=== PATIENT | male | born 1975 | race Caucasian/White ===

== ENCOUNTER 2020-09-16 17:10 | Observation (INO) ==
--- NOTE | 2020-09-16 19:20 | Emergency Department Note ---
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 He was seen there for a 3 to 4-day blurry vision in the bottom part of his right eye. The patient tells me that it started Saturday night into Saturday. Besides this he denies other complaints. He denies any difficulty speaking or swallowing or numbness or weakness. He had an episode of dizziness 2 months ago but none now. No chest pain or shortness of breath. No pain in his abdomen or back. No fever no exposure to Covid. He is not been Covid tested. He says they have been checking his temperature daily as per routine and he has had no fever. The symptoms started suddenly. No headache or head injuries. No chest pain or shortness of breath. No numbness or weakness. Initially was unclear why he was here as he did not call ahead in the halfway guards could not tell me so I did c all and talk to Dr. Doherty at [facility]. He said that the infantry indirect fire crewmember told him that he had a branch occlusion of a retinal artery and was sent for a stroke work-up. In light of this a full stroke work-up was ordered. The patient has no trouble speaking or swallowing. Home Medications Medication Instructions Recorded Confirmed Type ketoconazole 1 applic TOPICAL UD 09/16/20 09/16/20 History Allergies Allergy/AdvReac Type Severity Reaction Status Date / Time No Known Allergies Allergy Unverified 09/16/20 19:54 Past Med/Surg History Social History Smoking Status: Never smoker Feels Safe at Home: Yes Review of Systems A total of 10 systems reviewed and were otherwise negative Physical Exam Vital Signs Vital Signs - 24 hr 09/16/20 17:14 09/16/20 17:17 09/16/20 21:17 Temperature 36.5 C 36.5 C Temperature Source Oral Temporal Artery Scan Pulse Rate 99 H 99 H Pulse Rate [Apical] 71 Pulse Rhythm Regular Pulse Strength Normal Respiratory Rate 20 18 16 Respiratory Effort / Characteristics Non-Labored Spontaneous Non-Labored Spontaneous Respiratory Depth Normal Normal Respiratory Pattern Regular Blood Pressure 169/109 H 169/109 H Blood Pressure [Right Arm] 152/100 H Blood Pressure Mean 129 129 Blood Pressure Mean [Right Arm] 117 Blood Pressure Position Sitting Sitting Pulse Oximetry 100 100 100 Oxygen Delivery Method Room Air Room Air Room Air Sepsis Recent Fever Within 48 Hours No No Sepsis New/Unexplained Change in Mental Status N/A N/A Sepsis Action Taken by Nursing No Action Required No Action Required General: Well developed well nourished in no acute distress, breathing comfortably on room air. Normal speech HEENT: Normal cephalic atraumatic. Pupils are equal round and reactive to light. Extraocular movements are intact. Oropharynx is pink with moist mucous membranes. No swelling of the mouth lips or tongue. Neck: Supple with a midline trachea. No meningeal signs or stiffness, no JVD or bruits. No Stridor. Chest: Clear to auscultation bilaterally. No wheezes or rhonchi. No increased work of breathing. Heart: Regular rate and rhythm without murmurs or gallops. Abdomen: Soft nontender, nondistended without rebound guarding or rigidity. Extremities: No cyanosis clubbing or edema. No calf tenderness or assymetry Spine/Back. Non tender to palpation. No CVA tenderness Skin: Good turgor without rashes. Neurologic exam: Cranial nerves two through 12 are intact. Motor and sensation are intact and symmetrical throughout. Course Administered Medications Discontinued Medications Aspirin (Aspirin 81 Mg Chew) 324 mg PO NOW STA Stop: 09/16/20 21:35 Last Admin: 09/16/20 21:58 Dose: 324 mg Documented by: [id number] Ioversol (Optiray 320 125ml) 120 ml IV ONCE ONE Stop: 09/16/20 21:13 Last Admin: 09/16/20 21:12 Dose: 120 ml Documented by: [id number] Medical Decision Making Differential Diagnosis Stroke, retinal artery occlusion, arrhythmia, electrolyte or metabolic abnormality, intracranial hemorrhage, vascular disease, infection, Covid Medical Records Attestation: I reviewed the patient's medical records. Home Medications Current Medication List: was personally reviewed by me Laboratory Data Attestation: I reviewed the patient's lab results. Result diagrams: 09/16/20 19:31 09/16/20 19:31 Lab Results 09/16/20 09/16/20 09/16/20 Range/Units 19:31 19:31 19:31 WBC 5.73 (4.8-10.8) K/uL RBC 4.91 (4.7-6.1) M/uL Hgb 15.4 (14.0-18.0) g/dL Hct 40.8 L (42-52) % MCV 83.1 (80-100) fL MCH 31.4 (25-34) pg MCHC 37.7 H (32-36) g/dL RDW Std Deviation 37.4 (36.4-46.3) fL RDW Coeff of Patrick 12.4 (11.5-14.5) % Plt Count 207 (130-400) K/uL MPV 10.6 H (7.4-10.4) fL Immature Gran % (Auto) 0.0 % Neut % (Auto) 53.4 % Lymph % (Auto) 39.6 % [place] % (Auto) 6.5 % Eos % (Auto) 0.3 % Baso % (Auto) 0.2 % Neut # (Auto) 3.06 (1.4-6.5) K/uL Lymph # (Auto) 2.27 (1.2-3.4) K/uL [place] # (Auto) 0.37 (0.11-0.59) K/uL Eos # (Auto) 0.02 (0-0.5) K/uL Baso # (Auto) 0.01 (0-0.2) K/uL Immature Gran # (Auto) 0.00 (0.00-0.02) K/uL PT 11.5 (9.0-12.0) Seconds INR 1.1 (0.9-1.1) APTT 30.1 (21.0-31.0) Seconds PTT Ratio 1.1 Sodium 140 (136-145) mmol/L Potassium 3.7 (3.5-5.1) mmol/L Chloride 108 H (98-107) mmol/L Carbon Dioxide 26 (21-32) mmol/L Anion Gap 5.0 (3-11) BUN 11 (7-18) mg/dl Creatinine 0.93 (0.6-1.4) mg/dl Est Cr Clr Drug Dosing Not Reportable Est GFR ( Amer) 112.9 Est GFR (Non-Af Amer) 97.4 BUN/Creatinine Ratio 11.3 (10-20) Glucose 102 H (70-99) mg/dl Calcium 9.2 (8.5-10.1) mg/dl Magnesium 2.2 (1.8-2.4) mg/dl Total Bilirubin 0.5 (0.2-1) mg/dl AST 19 (15-37) U/L ALT 39 (12-78) U/L Alkaline Phosphatase 54 (45-117) U/L Troponin I < 0.015 (0-0.045) ng/ml Total Protein 8.2 (6.4-8.2) gm/dl Albumin 4.1 (3.4-5.0) gm/dl Globulin 4.1 H (2.5-4.0) gm/dl Albumin/Globulin Ratio 1.0 (0.9-2) COVID-19 Eval Order SARS-CoV-2, RNA, NAAT (NEGATIVE) 09/16/20 09/16/20 Range/Units 19:55 19:55 WBC (4.8-10.8) K/uL RBC (4.7-6.1) M/uL Hgb (14.0-18.0) g/dL Hct (42-52) % MCV (80-100) fL MCH (25-34) pg MCHC (32-36) g/dL RDW Std Deviation (36.4-46.3) fL RDW Coeff of Patrick (11.5-14.5) % Plt Count (130-400) K/uL MPV (7.4-10.4) fL Immature Gran % (Auto) % Neut % (Auto) % Lymph % (Auto) % [place]raz[place] % (Auto) % Eos % (Auto) % Baso % (Auto) % Neut # (Auto) (1.4-6.5) K/uL Lymph # (Auto) (1.2-3.4) K/uL [place] # (Auto) (0.11-0.59) K/uL Eos # (Auto) (0-0.5) K/uL Baso # (Auto) (0-0.2) K/uL Immature Gran # (Auto) (0.00-0.02) K/uL PT (9.0-12.0) Seconds INR (0.9-1.1) APTT (21.0-31.0) Seconds PTT Ratio Sodium (136-145) mmol/L Potassium (3.5-5.1) mmol/L Chloride (98-107) mmol/L Carbon Dioxide (21-32) mmol/L Anion Gap (3-11) BUN (7-18) mg/dl Creatinine (0.6-1.4) mg/dl Est Cr Clr Drug Dosing Est GFR ( Amer) Est GFR (Non-Af Amer) BUN/Creatinine Ratio (10-20) Glucose (70-99) mg/dl Calcium (8.5-10.1) mg/dl Magnesium (1.8-2.4) mg/dl Total Bilirubin (0.2-1) mg/dl AST (15-37) U/L ALT (12-78) U/L Alkaline Phosphatase (45-117) U/L Troponin I (0-0.045) ng/ml Total Protein (6.4-8.2) gm/dl Albumin (3.4-5.0) gm/dl Globulin (2.5-4.0) gm/dl Albumin/Globulin Ratio (0.9-2) COVID-19 Eval Order Covid19 [facility] SARS-CoV-2, RNA, NAAT NEGATIVE (NEGATIVE) Imaging Data Radiologist's Impression: SINGLE VIEW CHEST CLINICAL HISTORY: Strokelike symptoms. FINDINGS: An AP, portable, upright chest radiograph is obtained. No prior studies are available for comparison at the time of dictation. The heart appears mildly enlarged. The pulmonary vasculature is noncongested. There is bibasilar scarring/atelectasis. No airspace consolidation or large pleural effusion is identified. No pneumothorax is seen. The bony thorax is grossly intact. IMPRESSION: No acute cardiopulmonary abnormality. UNENHANCED CT OF THE BRAIN CT ANGIOGRAM OF THE BRAIN; CT ANGIOGRAM OF THE NECK CLINICAL HISTORY: Strokelike symptoms. COMPARISON STUDY: No priors. TECHNIQUE: Unenhanced axial CT scan of the brain is performed. Subsequently, following the IV administration of 120 of Optiray 320, CT angiogram of the head and neck was performed from the aortic arch to the vertex. Images are reviewed in the axial, sagittal, and coronal planes. 3-D MIPS images are created and assessed. IV contrast was administered without complication. All measurements were calculated based on NASCET criteria. A dose lowering technique was utilized adhering to the principles of ALARA. CT DOSE: 1464.12 mGy.cm FINDINGS: Brain parenchyma: The brain parenchyma is normal in appearance. There is no hemorrhage, mass effect, or evidence of acute territorial ischemia by CT criteria. There is no evidence of enhancing mass lesion on the angiogram phase images. The ventricles, sulci, and cisterns are normal in configuration. Ruffin- white matter differentiation is preserved. No extra-axial fluid collection is seen. Thoracic aorta: Visualized portions of the thoracic aorta are normal in caliber. The aortic arch demonstrates standard 3-vessel anatomy. Right carotid arterial system: The right common carotid artery is widely patent, as are the right internal and external carotid arteries. Left carotid arterial system: The left common carotid artery is widely patent, as are the left internal and external carotid arteries. Vertebral arteries: The vertebral arteries are widely patent bilaterally and codominant. Subclavian arteries: Widely patent bilaterally. Intracranial vasculature: The internal carotid arteries are patent at the skull base, as are the anterior and middle cerebral arteries bilaterally. The vertebrobasilar system and posterior cerebral arteries are widely patent. The vertebral arteries are codominant. There is no aneurysm, high-grade stenosis, or focal vessel cut off seen throughout the intracranial circulation. Jugular veins: Patent bilaterally. Dural sinuses: Patent. Lung apices: Partially visualized upper lobe lung parenchyma appears clear. There is indeterminant gas identified within the mediastinum anterior to the trachea. This is partially visualized on image #[address] angiogram series. Soft tissues: The visualized pharyngeal soft tissues are normal in appearance noting angiographic phase technique. The oropharyngeal airway appears widely patent. The salivary and thyroid glands are normal in appearance. No cervical lymphadenopathy is seen. Skeletal structures: The calvarium appears intact. The cervical spine is within normal limits. Orbits: The bony orbits are intact. Orbital contents are normal as visualized. Sinuses and mastoids: The paranasal sinuses are clear. The mastoid air cells are well pneumatized. IMPRESSION: 1. There is no hemorrhage, mass effect, or evidence of acute territorial ischemia by CT criteria. 2. Unremarkable CT angiogram of the brain. 3. Unremarkable CT angiogram of the neck. 4. There is indeterminant mediastinal gas seen immediately anterior to the trachea which is partially visualized on the CT angiogram of the neck. This may represent a tracheal diverticulum or possibly pneumomediastinum. Clinical correlation will be required. ECG Data Attestation: I personally reviewed and interpreted this ECG as follows: Indication: + weakness (Strokelike symptoms with branch retinal artery occlusion) Rate (beats per minute): 61 Rhythm: + normal sinus ECG Intervals/blocks: + Normal QRS, + Normal QT and + Normal CT ECG [place]: + Normal ECG ST segments: + Normal ST segments ECG Findings: no PACs and no PVCs Comparison ECG Date: no prior available MDM Narrative This patient comes in as described above. 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 He said 3 or 4 days of loss of vision. Apparently they thought that he had a branch retinal artery occlusion on ophthal mologic exam. This is concerning for a stroke. He needs a full stroke work-up and this was initiated. I did use language line lunchroom mother to talk to the patient as well. He is outside the window for TPA or intervention but he does need a full stroke work-up. IV access was established, EKG, and chest x-ray were obtained. CAT scan of the head and neck were also obtained. EKG does not suggest any significant arrhythmia or ischemia. Troponin is not elevated. He has no significant electrolyte or metabolic abnormalities. He has nothing to suggest infection or hypoglycemia. His Covid testing was negative. CAT/CTA scan were unremarkable. Electrolytes were unremarkable. There was a small amount of air seen near the trachea which could be a tracheal diverticulum or pneumomediastnum, chest x-ray was obtained and was negative. The patient was given aspirin 324 mg chewable. I do think he needs to be admitted/observe for further stroke work-up. I have consulted Dr. Pacheco to see the patient in the ER for these measures. Continuous cardiac monitoring: An order was placed in the EMR for continuous cardiac monitoring. The patient was noted to be in normal sinus rhythm with a rate of 60. Impression & Plan Acute CVA (cerebrovascular accident), Branch retinal artery occlusion of right eye Discharge Plan Visit Data Chief Complaint: Eye Pain Stated Complaint: RIGHT INFERIOR RETINAL DETACHMENT ED Provider: Timo Mendoza Discharge Problem: Acute CVA (cerebrovascular accident), Branch retinal artery occlusion of right eye Patient Disposition: Admitted As Inpatient Discharge Instructions Interventions: ED Discharge Assessment Last Done: 09/16/20 23:03
[2020-09-16 19:58] LABS: Basophils # (auto) 0.01 K/uL (0-0.2); Basophils % (auto) 0.2 %; Eosinophils # (auto) 0.02 K/uL (0-0.5); Eosinophils % (auto) 0.3 %; Hematocrit (blood only) 40.8 % (42-52); Hemoglobin 15.4 g/dL (14.0-18.0); Lymphocytes # (auto) 2.27 K/uL (1.2-3.4); Lymphocytes % (auto) 39.6 %; Mean Corpuscular Hemoglobin 31.4 pg (25-34); Mean Corpuscular Hgb Conc 37.7 g/dL (32-36); Mean Corpuscular Volume 83.1 fL (80-100); Mean Platelet Volume 10.6 fL (7.4-10.4); Monocytes # (auto) 0.37 K/uL (0.11-0.59); Monocytes % (auto) 6.5 %; Neutrophils # (auto) 3.06 K/uL (1.4-6.5); Neutrophils % (auto) 53.4 %; Platelet Count 207 K/uL (130-400); RDW Coefficient of Variation 12.4 % (11.5-14.5); RDW Standard Deviation 37.4 fL (36.4-46.3); Red Blood Count 4.91 M/uL (4.7-6.1); White Blood Count 5.73 K/uL (4.8-10.8)
[2020-09-16 20:12] LABS: INR 1.1 (0.9-1.1); Partial Thromboplastin Ratio 1.1; Partial Thromboplastin Time 30.1 Seconds (21.0-31.0); Prothrombin Time 11.5 Seconds (9.0-12.0)
[2020-09-16 20:20] LABS: Alanine Aminotransferase 39 U/L (12-78); Albumin Level 4.1 gm/dl (3.4-5.0); Aspartate Aminotransferase 19 U/L (15-37); BUN Creatinine Ratio 11.3 (10-20); Blood Urea Nitrogen 11 mg/dl (7-18); Calcium 9.2 mg/dl (8.5-10.1); Carbon Dioxide 26 mmol/L (21-32); Chloride 108 mmol/L (98-107); Est GFR (African American) 112.9; Est GFR (Non-African American) 97.4; Glucose 102 mg/dl (70-99); Magnesium 2.2 mg/dl (1.8-2.4); Potassium 3.7 mmol/L (3.5-5.1); Sodium 140 mmol/L (136-145)
[2020-09-16 20:24] LABS: Alkaline Phosphatase 54 U/L (45-117); Bilirubin,Total 0.5 mg/dl (0.2-1); Globulin 4.1 gm/dl (2.5-4.0); Total Protein 8.2 gm/dl (6.4-8.2); Troponin I < 0.015 ng/ml (0-0.045)
[2020-09-16] MEDS ORDERED: OPTIRAY 320 125ml IV ONE (21:12)
--- NOTE | 2020-09-16 21:28 | CT Scan Report ---
UNENHANCED CT OF THE BRAIN CT ANGIOGRAM OF THE BRAIN; CT ANGIOGRAM OF THE NECK CLINICAL HISTORY: Strokelike symptoms. COMPARISON STUDY: No priors. TECHNIQUE: Unenhanced axial CT scan of the brain is performed. Subsequently, following the IV adminis tration of 120 of Optiray 320, CT angiogram of the head and neck was performed from the aortic arch t o the vertex. Images are reviewed in the axial, sagittal, and coronal planes. 3-D MIPS images are cre ated and assessed. IV contrast was administered without complication. All measurements were calculate d based on NASCET criteria. A dose lowering technique was utilized adhering to the principles of ALA RA. CT DOSE: 1464.12 mGy.cm FINDINGS: Brain parenchyma: The brain parenchyma is normal in appearance. There is no hemorrhage, mass effect, or evidence of acute territorial ischemia by CT criteria. There is no evidence of enhancing mass lesi on on the angiogram phase images. The ventricles, sulci, and cisterns are normal in configuration. Gr ay-white matter differentiation is preserved. No extra-axial fluid collection is seen. Thoracic aorta: Visualized portions of the thoracic aorta are normal in caliber. The aortic arch demo nstrates standard 3-vessel anatomy. Right carotid arterial system: The right common carotid artery is widely patent, as are the right int ernal and external carotid arteries. Left carotid arterial system: The left common carotid artery is widely patent, as are the left director internal communications al and external carotid arteries. Vertebral arteries: The vertebral arteries are widely patent bilaterally and codominant. Subclavian arteries: Widely patent bilaterally. Intracranial vasculature: The internal carotid arteries are patent at the skull base, as are the ante rior and middle cerebral arteries bilaterally. The vertebrobasilar system and posterior cerebral enzo misha are widely patent. The vertebral arteries are codominant. There is no aneurysm, high-grade steno sis, or focal vessel cut off seen throughout the intracranial circulation. Jugular veins: Patent bilaterally. Dural sinuses: Patent. Lung apices: Partially visualized upper lobe lung parenchyma appears clear. There is indeterminant ga s identified within the mediastinum anterior to the trachea. This is partially visualized on image #[address] angiogram series. Soft tissues: The visualized pharyngeal soft tissues are normal in appearance noting angiographic pha se technique. The oropharyngeal airway appears widely patent. The salivary and thyroid glands are nor mal in appearance. No cervical lymphadenopathy is seen. Skeletal structures: The calvarium appears intact. The cervical spine is within normal limits. Orbits: The bony orbits are intact. Orbital contents are normal as visualized. Sinuses and mastoids: The paranasal sinuses are clear. The mastoid air cells are well pneumatized. IMPRESSION: 1. There is no hemorrhage, mass effect, or evidence of acute territorial ischemia by CT criteria. 2. Unremarkable CT angiogram of the brain. 3. Unremarkable CT angiogram of the neck. 4. There is indeterminant mediastinal gas seen immediately anterior to the trachea which is partially visualized on the CT angiogram of the neck. This may represent a tracheal diverticulum or possibly p neumomediastinum. Clinical correlation will be required. ACT 112: Negative or not required by law. Electronically signed by: Guerrero Mcleod M.D. 09/16/2020 9:27 PM
[2020-09-16] MEDS ORDERED: ASPIRIN 81 MG CHEW PO STA (21:34)
--- NOTE | 2020-09-16 21:49 | XRay Report ---
SINGLE VIEW CHEST CLINICAL HISTORY: Strokelike symptoms. FINDINGS: An AP, portable, upright chest radiograph is obtained. No prior studies are available for c omparison at the time of dictation. The heart appears mildly enlarged. The pulmonary vasculature is noncongested. There is bibasilar scarring/atelectasis. No airspace consolidation or large pleural eff usion is identified. No pneumothorax is seen. The bony thorax is grossly intact. IMPRESSION: No acute cardiopulmonary abnormality. ACT 112: Negative or not required by law. Electronically signed by: Guerrero Mcleod M.D. 09/16/2020 9:47 PM
--- NOTE | 2020-09-16 22:48 | History & Physical Report ---
Date of Service September 16, 2020 Assessment & Plan (1) Branch retinal artery occlusion of right eye: Admission and Anticipated Discharge Date Admission Date: Wilberto is a 45-year-old male who is an inmate at [facility] and was sent to [facility] from opthalmologist office in [place]. His chief complaint is 3 to 4 days of vision changes in the bottom part of his right eye. His mva reactor operator was said to have found a branch occlusion of the retinal artery he was sent to [facility] for a stroke work-up. He requires admission for further evaluation and management. Branch retinal artery occlusion of right eye Per [facility] provider, mva reactor operator mentioned occlusion of branch retinal artery of right eye Sent to [facility] by mva reactor operator for stroke work-up So far patient with negative work-up for stroke including head CT, chest x-ray, EKG, head and neck CTA, EKG No neurologic deficits on exam No symptoms per patient except blurry vision at bottom of right eye Consult Neurology Order brain MRI without contrast to further rule out stroke Morning CBC, BMP, A1c, lipid profile, coags Admit to med/surg telemetry FEN GI: Heart healthy diet DVT prophylaxis: Lovenox 40 mg SQ daily Dispo: Med/surg telemetry CODE STATUS: Full History of Present Illness Chief Complaint: Eye complaint Primary Care Provider: STEPHANIE Thorpewendy Wilberto Dodson is a 45-year-old male who is an inmate at [facility] and was sent to [facility] from opthalmologist office in [place]. His chief complaint is 3 to 4 days of vision changes in the bottom part of his right eye. ED provider talk to Dr. Doherty at [facility] who said that the mva reactor operator had mentioned the patient had a branch occlusion of the retinal artery and was sent to the hospital for stroke work-up. He describes cloudy vision at the bottom part of his right eye. He has no pain, no weakness, no dizziness, no numbness, difficulty speaking/swallowing. Patient mentions he used to take medications for high blood pressure but was taken off of them a while back as he had well-controlled BPs. Denies fever, chills, chest pain, cough, shortness of breath, abd pain, n/v, diarrhea, constipation, dysuria. In the ED he had unremarkable CBC & BMP. He had a head CT that was negative for acute intracranial abnormalities. Head & neck CTA unremarkable but did note indeterminant mediastinal gas seen immediately anterior to the trachea which is partially visualized on the CT angiogram of the neck. This may represent a tracheal diverticulum or possibly pneumomediastinum. Follow-up CXR however showed no acute cardiopulmonary findings, no pneumothorax seen. He received 1 dose of ASA 324mg PO. Patient interview was done in [place]i by myself, a white earth Bahraini speaker. Allergies Allergy/AdvReac Type Severity Reaction Status Date / Time No Known Allergies Allergy Unverified 09/16/20 19:54 Home Medications Medication Instructions Recorded Confirmed Type ketoconazole 1 applic TOPICAL UD 09/16/20 09/16/20 History Past Med/Surg History Social History Smoking Status: Never smoker Second Hand Exposure: No; Do You Dip or Chew Tobacco: No; Tobacco Cessation Education Requested by Patient: No Hx Alcohol Use: No Hx Substance Use: No Preferred Language: [place]i Communication Ability: Effective Communication Tools: IPad Head Of Ict Required: Yes Beliefs That Will Affect Care: None Current Living Situation: Other Current Living Situation Comment: [facility] Other Information That Helps Us Care for You: No Feels Safe at Home: Yes Safety Concerns: Feels Safe At This Time Assistive Devices: None Assistive Devices Comment: GLASSES NOT SENT WITH PATIENT FROM CORRECTIONAL FACILITY Review of Systems Review of Systems: All systems reviewed & are unremarkable except as noted in HPI & below Physical Exam Physical Exam: GENERAL: A&Ox3. NAD. HEENT: PERRL, EOMI. NECK: No JVD. No lymphadenopathy. CHEST/LUNGS: CTAB A/P. No crackles, wheezes, rales, ronchi. No crepitus under skin. HEART: RRR. No m/g/r. No carotid bruits. ABDOMEN: NT/ND, soft. BS+ x4 EXTREMITIES: No cyanosis, no clubbing, no edema SKIN: Warm and dry. No rashes or lesions. PSYCHIATRIC: Euthymic affect, no SI, no pressured speech, no hallucinations NEUROLOGIC: The patient has 5/5 strength x4 extremities. Sensation intact. CN II-XII grossly intact. Results & Data Results & Data ([facility]) Vital Signs (Past 12 Hours) Vital Signs Temp Pulse Pulse Resp BP BP Pulse Ox 09/16/20 21:17 71 16 152/100 H 100 09/16/20 17:17 36.5 C 99 H 18 169/109 H 100 09/16/20 17:14 36.5 C 99 H 20 169/109 H 100 Supervising Physician Co-Signing Physician Notes Attending addendum: I have physically seen this patient, have supervised the medical residents activities, and agree with the H&P unless as otherwise noted. Assessment and Plan: Branch retinal artery occlusion in the right eye- Noted at outpatient retina specialist visit in [place] earlier in the day. CT head without contrast negative CTA head neck negative chest x-ray negative Stroke without TPA order set Order MRI brain without contrast Consults to PT/OT/speech therapy Consult neurology Aspirin 81 mg every morning Continued ophthalmologic follow-up Remainder of orders and notations as noted Resident Activity Tracking Resident Involvement: Resident Care Provided Care Provided: Adult Hospital Medicine
[2020-09-16] MEDS ORDERED: POLYETHYLENE (MIRALAX) 17 GM PACK PO PRN (23:43)
[2020-09-16] MEDS ORDERED: PHARMACIST DISCHARGE MED REC CONSULT PRN (23:43)
[2020-09-16] MEDS ORDERED: ACETAMINOPHEN 325 MG TAB PO PRN (23:43)
[2020-09-16] MEDS ORDERED: ONDANSETRON INJ 2 MG/ML 2 ML VIAL IV PRN (23:43)
[2020-09-16] MEDS ORDERED: MAGNESIUM HYDROXIDE SUSP 30 ML UDC PO PRN (23:43)
[2020-09-16] MEDS ORDERED: ALUMINUM/MAGNESIUM SUSP 30 ML UDC PO PRN (23:43)
[2020-09-17 06:39] LABS: Hematocrit (blood only) 40.9 % (42-52); Hemoglobin 15.1 g/dL (14.0-18.0); Mean Corpuscular Hgb Conc 36.9 g/dL (32-36); Mean Platelet Volume 10.3 fL (7.4-10.4); Platelet Count 200 K/uL (130-400); RDW Coefficient of Variation 12.5 % (11.5-14.5); RDW Standard Deviation 38.2 fL (36.4-46.3); Red Blood Count 4.87 M/uL (4.7-6.1); White Blood Count 5.29 K/uL (4.8-10.8)
[2020-09-17 06:52] LABS: INR 1.1 (0.9-1.1); Prothrombin Time 11.9 Seconds (9.0-12.0)
[2020-09-17 07:07] LABS: Basophils # (auto) 0.01 K/uL (0-0.2); Basophils % (auto) 0.2 %; Eosinophils # (auto) 0.12 K/uL (0-0.5); Eosinophils % (auto) 2.3 %; Immature Granulocytes # (auto) 0.01 K/uL (0.00-0.02); Immature Granulocytes % (auto) 0.2 %; Lymphocytes # (auto) 2.72 K/uL (1.2-3.4); Lymphocytes % (auto) 51.4 %; Monocytes # (auto) 0.65 K/uL (0.11-0.59); Monocytes % (auto) 12.3 %; Neutrophils # (auto) 1.78 K/uL (1.4-6.5); Neutrophils % (auto) 33.6 %; RBC Morphology Unremarkable
[2020-09-17 07:24] LABS: BUN Creatinine Ratio 11.4 (10-20); Calcium 8.8 mg/dl (8.5-10.1); Creatinine Clr Calc Pharmacy 125.3 ml/min; Est GFR (African American) 119.1; Est GFR (Non-African American) 102.8; Potassium 4.1 mmol/L (3.5-5.1)
--- NOTE | 2020-09-17 07:32 | Hospitalist Progress Note ---
Date of Service September 17, 2020 Assessment & Plan (1) Branch retinal artery occlusion of right eye: Patient with no changes in symptoms Pending MRI TTE ordered Normal A1c, glucose, blood pressure readings normal Negative head and neck CTA Continue aspirin Started Atorvastatin 80 mg Plan on follow-up of pending results and further disposition. Neurology following Admission and Anticipated Discharge Date Admission Date: September 16, 2020 Subjective No new complaints overnight Visual changes have not improved or worsened No fevers or chills, headaches No weakness numbness Tolerating normal appetite with no concerns of pain Review of Systems Review of Systems: All systems reviewed & are unremarkable except as noted in Subjective Physical Exam Physical Exam: Constitutional: WD/WN, vitals as above Respiratory: Effort normal, CTA B/L CV: RRR, no murmur, no edema Abdomen: normal bowel sounds, soft, nontender, no hepatosplenomegaly Neurologic: Grossly intact, see complete physical exam and Neurology Results & Data Results & Data ([facility]) Vital Signs (Past 12 Hours) Vital Signs Temp Pulse Resp BP BP Pulse Ox 09/17/20 03:32 36.8 C 56 L 18 129/78 97 09/16/20 23:30 37.1 C 58 L 18 159/94 H 100 09/16/20 22:50 59 L 18 131/91 96 09/16/20 21:17 71 16 152/100 H 100 Laboratory Results Laboratory Results - last 24 hr 09/16/20 09/16/20 09/16/20 19:31 19:31 19:31 WBC 5.73 RBC 4.91 Hgb 15.4 Hct 40.8 L MCV 83.1 MCH 31.4 MCHC 37.7 H RDW Std Deviation 37.4 RDW Coeff of Patrick 12.4 Plt Count 207 MPV 10.6 H Immature Gran % (Auto) 0.0 Neut % (Auto) 53.4 Lymph % (Auto) 39.6 Jay % (Auto) 6.5 Eos % (Auto) 0.3 Baso % (Auto) 0.2 Neut # (Auto) 3.06 Lymph # (Auto) 2.27 Jay # (Auto) 0.37 Eos # (Auto) 0.02 Baso # (Auto) 0.01 Immature Gran # (Auto) 0.00 RBC Morphology PT 11.5 INR 1.1 APTT 30.1 PTT Ratio 1.1 Sodium 140 Potassium 3.7 Chloride 108 H Carbon Dioxide 26 Anion Gap 5.0 BUN 11 Creatinine 0.93 Est Cr Clr Drug Dosing Not Reportable Est GFR ( Amer) 112.9 Est GFR (Non-Af Amer) 97.4 BUN/Creatinine Ratio 11.3 Glucose 102 H Estimat Average Glucose Hemoglobin A1c Calcium 9.2 Magnesium 2.2 Total Bilirubin 0.5 AST 19 ALT 39 Alkaline Phosphatase 54 Troponin I < 0.015 Total Protein 8.2 Albumin 4.1 Globulin 4.1 H Albumin/Globulin Ratio 1.0 Triglycerides Cholesterol LDL Cholesterol, Calc VLDL Cholesterol, Calc HDL Cholesterol Cholesterol/HDL Ratio Nasal Screen MRSA (PCR) COVID-19 Eval Order SARS-CoV-2, RNA, NAAT 09/16/20 09/16/20 09/17/20 19:55 19:55 00:45 WBC RBC Hgb Hct MCV MCH MCHC RDW Std Deviation RDW Coeff of Patrick Plt Count MPV Immature Gran % (Auto) Neut % (Auto) Lymph % (Auto) Jay % (Auto) Eos % (Auto) Baso % (Auto) Neut # (Auto) Lymph # (Auto) Jay # (Auto) Eos # (Auto) Baso # (Auto) Immature Gran # (Auto) RBC Morphology PT INR APTT PTT Ratio Sodium Potassium Chloride Carbon Dioxide Anion Gap BUN Creatinine Est Cr Clr Drug Dosing Est GFR ( Amer) Est GFR (Non-Af Amer) BUN/Creatinine Ratio Glucose Estimat Average Glucose Hemoglobin A1c Calcium Magnesium Total Bilirubin AST ALT Alkaline Phosphatase Troponin I Total Protein Albumin Globulin Albumin/Globulin Ratio Triglycerides Cholesterol LDL Cholesterol, Calc VLDL Cholesterol, Calc HDL Cholesterol Cholesterol/HDL Ratio Nasal Screen MRSA (PCR) Negative COVID-19 Eval Order Covid19 IDNow [facility] SARS-CoV-2, RNA, NAAT NEGATIVE 09/17/20 09/17/20 09/17/20 06:26 06:26 06:26 WBC 5.29 RBC 4.87 Hgb 15.1 Hct 40.9 L MCV 84.0 MCH 31.0 MCHC 36.9 H RDW Std Deviation 38.2 RDW Coeff of Patrick 12.5 Plt Count 200 MPV 10.3 Immature Gran % (Auto) 0.2 Neut % (Auto) 33.6 Lymph % (Auto) 51.4 Jay % (Auto) 12.3 Eos % (Auto) 2.3 Baso % (Auto) 0.2 Neut # (Auto) 1.78 Lymph # (Auto) 2.72 Jay # (Auto) 0.65 H Eos # (Auto) 0.12 Baso # (Auto) 0.01 Immature Gran # (Auto) 0.01 RBC Morphology Unremarkable PT 11.9 INR 1.1 APTT PTT Ratio Sodium 142 Potassium 4.1 Chloride 110 H Carbon Dioxide 29 Anion Gap 3.0 BUN 10 Creatinine 0.87 Est Cr Clr Drug Dosing 125.3 Est GFR ( Amer) 119.1 Est GFR (Non-Af Amer) 102.8 BUN/Creatinine Ratio 11.4 Glucose 95 Estimat Average Glucose Hemoglobin A1c Calcium 8.8 Magnesium Total Bilirubin AST ALT Alkaline Phosphatase Troponin I Total Protein Albumin Globulin Albumin/Globulin Ratio Triglycerides 108 Cholesterol 200 LDL Cholesterol, Calc 139 VLDL Cholesterol, Calc 22 HDL Cholesterol 39 Cholesterol/HDL Ratio 5 Nasal Screen MRSA (PCR) COVID-19 Eval Order SARS-CoV-2, RNA, NAAT 09/17/20 06:26 WBC RBC Hgb Hct MCV MCH MCHC RDW Std Deviation RDW Coeff of Patrick Plt Count MPV Immature Gran % (Auto) Neut % (Auto) Lymph % (Auto) Jay % (Auto) Eos % (Auto) Baso % (Auto) Neut # (Auto) Lymph # (Auto) Jay # (Auto) Eos # (Auto) Baso # (Auto) Immature Gran # (Auto) RBC Morphology PT INR APTT PTT Ratio Sodium Potassium Chloride Carbon Dioxide Anion Gap BUN Creatinine Est Cr Clr Drug Dosing Est GFR ( Amer) Est GFR (Non-Af Amer) BUN/Creatinine Ratio Glucose Estimat Average Glucose Pending Hemoglobin A1c Pending Calcium Magnesium Total Bilirubin AST ALT Alkaline Phosphatase Troponin I Total Protein Albumin Globulin Albumin/Globulin Ratio Triglycerides Cholesterol LDL Cholesterol, Calc VLDL Cholesterol, Calc HDL Cholesterol Cholesterol/HDL Ratio Nasal Screen MRSA (PCR) COVID-19 Eval Order SARS-CoV-2, RNA, NAAT Medications Administered Current Inpatient Medications Acetaminophen (Acetaminophen 325 Mg Tab) 650 mg PO Q4H PRN PRN Reason: Pain or Fever Stop: 10/16/20 23:42 Al Hydrox/Mg Hydrox/Simethicone (Aluminum/Magnesium Susp 30 Ml Udc) 15 ml PO Q4H PRN PRN Reason: Dyspepsia Stop: 10/16/20 23:42 Enoxaparin Sodium (Enoxaparin Inj 40 Mg/0.4 Ml Syr) 40 mg SQ QAM DESTINI Stop: 10/17/20 08:59 Magnesium Hydroxide (Magnesium Hydroxide Susp 30 Ml Udc) 30 ml PO Q12H PRN PRN Reason: Constipation Stop: 10/16/20 23:42 Miscellaneous Information (Pharmacist Discharge Med Rec Consult) 1 ea N/A UD PRN PRN Reason: Consult Stop: 10/16/20 23:42 Ondansetron HCl (Ondansetron Inj 2 Mg/Ml 2 Ml Vial) 4 mg IV Q6H PRN PRN Reason: Nausea Stop: 10/16/20 23:42 Polyethylene Glycol (Polyethylene (Miralax) 17 Gm Pack) 17 gm PO DAILY PRN PRN Reason: Constipation Stop: 10/16/20 23:42 PG Care Time/CCT Total # of Minutes Spent Total Time Spent with Patient: Total time spent is greater than 50% in coordination of care (as documented) at patient's floor/unit and/or counseling patient: Coding Level of Care Code 32720 Subseq Hosp Care Lvl 2 Diagnoses Branch retinal artery occlusion of right eye H34.231
[2020-09-17 07:46] LABS: Estimated Average Glucose 103 mg/dl; Hemoglobin A1C 5.2 % (4.5-5.6)
--- NOTE | 2020-09-17 07:48 | Electrocardiogram Report ---
Test Reason : Blood Pressure : / mmHG Vent. Rate : 061 BPM Atrial Rate : 061 BPM P-R Int : 148 ms QRS Dur : 102 ms QT Int : 412 ms P-R-T Axes : 043 -27 018 degrees QTc Int : 414 ms Normal sinus rhythm Normal ECG No previous ECGs available Confirmed by Vadim Coburn ([id number]) on 09/17/2020 7:47:59 AM Referred By: [facility] Confirmed By:Vadim Coburn
[2020-09-17] MEDS: ENOXAPARIN INJ 40 MG/0.4 ML SYR SQ SCH (09:20)
--- NOTE | 2020-09-17 10:51 | Neurology Consultation ---
Date of Consultation September 17, 2020 Assessment & Plan (1) Branch retinal artery occlusion of right eye: Wilberto Dodson is a 45 yo man w/ PMH of HTN who p/t [facility] after acute onset of right eye inferior field cut, found to have right BRAO by outside ophtho. Symptom localization: right ophthalmic artery Stroke mechanism: cardioembolic, less likely vessel to vessel embolus given no carotid abnormality noted Stroke WorkUp: - CT head: shows no hemorrhage or hypodensity - CTA head/neck: shows no LVO, high-grade stenosis or aneurysm - MRI brain: pending - TTE: pending - Telemetry: pending - A1c: 5.2 - FLP: 139 - Troponin: negative - Hypercoagulable labs: ordered for the AM (Cardiolipin Ab, Protein C and S, ATIII, FV Leiden, PT gene mutation, APC resistance), ESR/CRP to r/o inflammatory AION (ordered) Stroke Management: - Acute treatment: ASA - Continuous cardiac monitoring, will need 30 day event monitor on discharge if telemetry here unrevealing - Vitals, Neurochecks, NIHSS per unit routine - BP parameters: SBP CAP 180, start BP meds if indicated - Obtain MRI brain to evaluate stroke burden - Complete ischemic stroke workup with TTE without bubble, hypercoagulability panel, ESR/CRP - Consult speech, PT, OT for supportive management - Will awake overnight counselor concerning stroke education, smoking cessation, healthy diet, physical activity, weight loss - Follow up with PCP for assistance with outpatient goals (BP <130/80, LDL <70, A1c <7) - Follow up in neurology clinic in 6-8 weeks Secondary Stroke Prevention: - Antiplatelet: ASA 81mg po daily - Anticoagulation: Not indicated at this time - Statin: Atorvastatin 80mg daily HTN: - BP parameters, as above - Restart home medications with goal of lowering BP to normotension over next 3- 4 days (consider starting low dose lisinopril as an outpatient if BP still elevated). - EKG and troponin pending FEN/GI: - Diet: Cardiac HH diet and PO meds given absence of bulbar signs or symptoms - Monitor lytes and replete PRN Glucose Control: - Sliding scale insulin and accuchecks per primary team to avoid hyperglycemia Thank you for this interesting consult. Plan of care was discussed with primary team. Please call with any questions. History of Present Illness Attending Physician: Timo Quinn DO History of Present Illness Wilberto Dodson is a 45 yo man w/ PMH of HTN who p/t [facility] after acute onset of right eye inferior field cut, found to have right BRAO by outside ophtho. 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 In the ED, he was afebrile, BP 169/109, heart rate 99, respiratory rate 20 satting 100% room air. Labs showed WBC 5.73, hemoglobin 15.4, platelets 207, BMP unremarkable with creatinine 0.93, glucose 102, INR 1.1, calcium/magnesium within normal, LFTs within normal troponin negative, Covid negative. Imaging independently reviewed. CT head shows no hemorrhage or hypodensity. CTA head and neck shows no LVO, high-grade stenosis or aneurysm. MRI brain pending. On examination, he reports that he is unable to see in the right eye inferior, outer quadrant. This has been present for 4-5 days. Denies any headaches, numbness/tingling, weakness or other symptoms associated with this. Allergies Allergy/AdvReac Type Severity Reaction Status Date / Time No Known Allergies Allergy Unverified 09/16/20 19:54 Home Medications Medication Instructions Recorded Confirmed Type ketoconazole 1 applic TOPICAL UD 09/16/20 09/16/20 History Patient History Social History Smoking Status: Never smoker Second Hand Exposure: No; Do You Dip or Chew Tobacco: No; Tobacco Cessation Education Requested by Patient: No Hx Alcohol Use: No Hx Substance Use: No Preferred Language: Slovak Communication Ability: Effective Communication Tools: IPad Internet Manager Required: Yes Beliefs That Will Affect Care: None Current Living Situation: Other Current Living Situation Comment: [facility] Other Information That Helps Us Care for You: No Feels Safe at Home: Yes Safety Concerns: Feels Safe At This Time Assistive Devices: None Assistive Devices Comment: GLASSES NOT SENT WITH PATIENT FROM CORRECTIONAL FACILITY Review of Systems Review of Systems: All systems reviewed & are unremarkable except as noted in Subjective Exam (Neuro) Physical Exam: General Exam: GEN: NAD, lying down in examination bed. HEENT: No conjunctival injection, no rhinorrhea. CV: RRR on monitor, no significant edema. PULM: Nonlabored respirations on room air. Neuro Exam: MS: Awake and Alert. Oriented to person, place, and date. Speech fluent and appropriate without dysarthria or paraphasic errors. Language intact including naming, comprehension, repetition. Cognition and memory grossly intact. Attention intact. No neglect. CN: Right eye inferior quadrantopia, + blink to threat bilaterally. No extinction to double simultaneous stimuli. Unable to visualize fundi on fundoscopic exam. PERRLA OU. EOMI without nystagmus. Facial sensation intact to LT. Facial muscles full and symmetric. Hearing intact to finger rub bilaterally. Uvula midline with symmetric palatal elevation. Shoulder shrug normal. Tongue midline. MOTOR: Normal bulk and tone. No pronator drift. BUE strength 5/5 at deltoids, biceps, triceps, wrist flexors and extensors, and finger flexors bilaterally. BLE strength 5/5 at iliopsoas, hamstrings, quadriceps, tibialis anterior, and gastrocnemius bilaterally. REFLEXES: 2+ at biceps, triceps, brachioradialis, 2+ patella, and 1+ Achilles bilaterally. Flexor plantar responses bilaterally. SENSORY: Intact to LT/vibration throughout, no extinction to double simultaneous stimuli. COORDINATION: No dysmetria or ataxia on [id number] bilaterally. Normal Galdino bilaterally. GAIT: Deferred due to physical status. NIH STROKE SCALE 1A. Level of Consciousness (0-3) = 0 1B. LOC Questions (0-2) = 0 1C. LOC Commands (0-2) = 0 2. Best Horizontal Gaze (0-2) = 0 3. Visual [place] (0-3) = 0 4. Facial Palsy (0-3) = 0 5. Motor Arm Right (0-4) = 0 Left (0-4) = 0 6. Motor Leg Right (0-4) = 0 Left (0-4) = 0 7. Limb Ataxia (0-2) = 0 8. Sensory (0-2) = 0 9. Best Language (0-3) = 0 10. Dysarthria (0-2) = 0 11. Extinction and Inattention (0-2) = 0 NIHSS TOTAL = 0 Results & Data ([facility]) Vital Signs (Past 12 Hours) Vital Signs Temp Pulse Pulse Resp BP BP Pulse Ox 09/17/20 08:00 74 09/17/20 07:31 36.9 C 66 18 131/81 98 09/17/20 03:32 36.8 C 56 L 18 129/78 97 09/16/20 23:30 37.1 C 58 L 18 159/94 H 100 09/16/20 22:50 59 L 18 131/91 96 PG Care Time/CCT Total # of Minutes Spent Total Time Spent with Patient: Total time spent is greater than 50% in coordination of care (as documented) at patient's floor/unit and/or counseling patient: Coding Level of Care Code 95870 Inpt Consult Level 5 Diagnoses Branch retinal artery occlusion of right eye H34.231
--- NOTE | 2020-09-17 17:17 | Magnetic Resonance Report ---
MR brain wo con HISTORY: 45 years-old Male Stroke r/o acute strokelike symptoms COMPARISON: Head CT, CTA head and neck 09/16/2020 TECHNIQUE: Multiplanar multisequence MRI of the brain was obtained without the use of IV contrast. FINDINGS: There is no restricted diffusion to suggest acute or subacute infarct. There is no acute intracranial hemorrhage, midline shift, abnormal extra-axial collection, hydrocephalus or intracranial mass. No p athologic blooming artifact on the T2 star series. The brain parenchyma is unremarkable. No significa nt T2/FLAIR signal abnormalities. Cerebral venous sinuses and major arterial flow voids are patent. The soft tissues and orbits are unr emarkable. Mastoid air cells and middle ear cavities are clear. Mild multifocal mucosal thickening of the ethmoid air cells on the right. IMPRESSION: No acute intracranial abnormality, specifically there is no evidence of acute or subacute infarct. ACT 112: Negative or not required by law. The above report was generated using voice recognition software. It may contain grammatical, syntax o r spelling errors. Electronically signed by: Dennis Ford M.D. 09/17/2020 5:15 PM
--- NOTE | 2020-09-18 05:43 | Billing Data ---
Date of Service September 18, 2020 Coding Level of Care Code 00025 OBS Care - Level 3
[2020-09-18 07:11] LABS: Hematocrit (blood only) 40.6 % (42-52); Hemoglobin 14.5 g/dL (14.0-18.0); Mean Corpuscular Hemoglobin 30.3 pg (25-34); Mean Corpuscular Hgb Conc 35.7 g/dL (32-36); Mean Corpuscular Volume 84.8 fL (80-100); Mean Platelet Volume 10.7 fL (7.4-10.4); Platelet Count 191 K/uL (130-400); RDW Coefficient of Variation 12.4 % (11.5-14.5); RDW Standard Deviation 38.1 fL (36.4-46.3); Red Blood Count 4.79 M/uL (4.7-6.1); White Blood Count 4.59 K/uL (4.8-10.8)
[2020-09-18 07:18] LABS: INR 1.1 (0.9-1.1)
[2020-09-18 07:33] LABS: Basophils # (auto) 0.02 K/uL (0-0.2); Basophils % (auto) 0.4 %; Eosinophils # (auto) 0.12 K/uL (0-0.5); Eosinophils % (auto) 2.6 %; Immature Granulocytes # (auto) 0.01 K/uL (0.00-0.02); Immature Granulocytes % (auto) 0.2 %; Lymphocytes # (auto) 2.33 K/uL (1.2-3.4); Lymphocytes % (auto) 50.8 %; Monocytes # (auto) 0.53 K/uL (0.11-0.59); Monocytes % (auto) 11.5 %; Neutrophils # (auto) 1.58 K/uL (1.4-6.5); Neutrophils % (auto) 34.5 %
[2020-09-18] MEDS: ENOXAPARIN INJ 40 MG/0.4 ML SYR SQ SCH (07:45)
[2020-09-18 07:49] LABS: BUN Creatinine Ratio 13.4 (10-20); Calcium 9.6 mg/dl (8.5-10.1); Creatinine Clr Calc Pharmacy 119.4 ml/min; Est GFR (African American) 114.4; Est GFR (Non-African American) 98.7; Potassium 3.9 mmol/L (3.5-5.1)
[2020-09-18] MEDS ORDERED: ATORVASTATIN 40 MG TAB PO SCH (09:00)
[2020-09-18] MEDS ORDERED: STROKE PATIENT DISCHARGE STA (13:36)
--- NOTE | 2020-09-18 13:39 | Discharge Summary ---
Date of Service September 18, 2020 Principal Diagnosis Pt states his vision is unchanged. He has mild pain to R eye, but also unchanged. Tolerating PO without issue. Pt denies fever, SOB, chest pain, abd pain, n/v/c/d, LE pain or swelling. Discussion was done via [employer] translate. Discharge Exam Constitutional WD/WN, vitals as above Eyes normal visual shah by confrontation and + anicteric sclerae Neck normal visual inspection and trachea midline Respiratory normal respiratory effort, lungs clear to auscultation Cardiovascular Rate/Rhythm: regular rate and regular rhythm Gastrointestinal (Abdomen) Inspection/Auscultation: abdomen not distended Percussion/Palpation: abdomen soft; abdomen nontender Musculoskeletal Head/Neck/Chest: normocephalic and head atraumatic Skin no rashes, warm and dry Neurologic awake; not confused Speech / Cognition: normal speech Psychiatric A+Ox3, euthymic affect Discharge Data Allergies Allergy/AdvReac Type Severity Reaction Status Date / Time No Known Allergies Allergy Unverified 09/16/20 19:54 Consultations 09/16/20 21:34 ED Decision to Admit Stat 09/16/20 23:43 Consult Case Management - Discharge Planning Routine Consult Neurology Routine Ordered Studies 09/16/20 19:15 CT angio head w con Stat CT angio neck with con Stat CT head/brain wo con Stat 09/16/20 23:21 MR brain wo con Routine Hospital Course (1) Branch retinal artery occlusion of right eye: Patient with no changes in symptoms MRI neg for acute ECHO with EF 55-60%, neg for major structural issues Normal A1c, glucose, ESR, CRP blood pressure readings normal Negative head and neck CTA Continue aspirin Started Atorvastatin 80 mg Neuro recs for 30 day event monitor and f/u as outpt Workup neg for stroke as a cause of arterial occlusion Total Time Total Time Spent Total Time Spent (In Minutes): >30 Total Time Includes: Examination of the Patient, Discharge Planning, Medication Reconciliation, Communication With Other Providers and Other Discharge Plan Discharge Items [facility] Disposition: [facility] Reason For Visit: STROKE R/O Discharge Diagnosis: R branch retinal artery occlusion Activity: Resume your previous activity Non-emergency contact: 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 If unable to do this from the facility, please call [phone] and ask to speak with Case Management who will assist you Follow up with cardiology after the event monitor Follow up with ophthalmology if new symptoms occur or if your current symptoms worsen Pending Studies at Discharge: No Stand-Alone Forms: My [facility] Skilled Items Patient informed of condition?: Yes Discharge Level of Care: Other Communicable Disease: No Discharge Prognosis: Stable Lines: None Urinary Catheter: No Medications and DC Order Prescriptions: New atorvastatin 40 mg Tablet 80 mg PO QAM Qty: 30 RF: 0 aspirin 81 mg tablet,delayed release (DR/EC) 81 mg PO DAILY Qty: 30 RF: 0 Continued ketoconazole 2 % Cream 1 applic TOPICAL UD RF: 0 Discharge Orders: Discharge Order (Routine); Ordered 09/18/20 Ordered By: Keily Bae Admission Data Admit Date/Time: 09/16/20 22:34 Attending Provider: Keily Bae Admit Provider: Steve Li Primary Care Provider: Annabelle BROWN Other Providers: Brenda Grande ; Timo Quinn Other Interventions: Discharge Summary Assessment (RN) Last Done: 09/18/20 14:02 Coding Level of Care Code D/C Day Management >30 mins Diagnoses Branch retinal artery occlusion of right eye H34.231
[2020-09-22 00:36] LABS: Anti Cardiolipin Ab IgG <14 GPL; Anti Cardiolipin Ab IgM 12 MPL; Anti-Cardiolipin Ab IgA <11 APL; Anti-Thrombin III Activity 97 % normal (80-135); Protein S Functional(Activity) 125 % (70-150)
== END 2020-09-18 15:51 | DRG 123 ==
LOC: ED 17:10 → INTOOBSV 22:34 → 2S 22:34 → SUATTDRO 22:34 → 2S 23:03